=== PATIENT | female | born 1950 | race Two or more races ===

== ENCOUNTER 2019-12-26 09:47 | Emergency (ER) | payer BC, MEDICAID ==
[~2019-12-26] VITALS: Ht 160 cm; Wt 64.0 kg
[2019-12-26] MEDS ORDERED: HYDROCODONE/ACETAMINOPHEN 5/325MG TABLET PO ONE ×2 (12:00→14:45)
[2019-12-26] MEDS ORDERED: KETOROLAC 60MG/2ML VIAL IM ONE (12:00)
[2019-12-26] MEDS ORDERED: AMLODIPINE 5MG TABLET PO ONE (15:15)
[2019-12-26 15:35] VITALS: BP 209/98
== END 2019-12-26 15:36 | disposition home or self-care (01) ==
LOC: ER 09:47
DX: M54.31 Sciatica, right side (principal); I10 Essential (primary) hypertension; E78.00 Pure hypercholesterolemia, unspecified
CPT/HCPCS: 73502; 73552; 93005; 96372; 99285; J1885

== ENCOUNTER 2021-07-11 15:27 | Emergency (ER) | payer MEDICARE, MEDICAID ==
[~2021-07-11] VITALS: Ht 160 cm; Wt 59.0 kg
[2021-07-11 16:57] LABS: BASOPHILS % 1.3 % (0.0-2.0); EOSINOPHILS % 1.3 % (0.0-5.0); HEMATOCRIT. 28.2 % (36.0-48.0); HEMOGLOBIN. 8.8 g/dL (12.0-16.0); LYMPHOCYTES % 26.6 % (20.0-50.0); MEAN CORPUSCULAR HEMOGLOBIN 21.3 pg (28.0-32.0); MEAN CORPUSCULAR VOLUME 68.7 fL (81.0-99.0); MEAN PLATELET VOLUME 8.4 fl (7.4-10.4); MONOCYTES % 6.1 % (2.0-8.0); NEUTROPHILS % 64.7 % (40.0-76.0); PLATELET 260 x1000/uL (130-400); RED BLOOD CELL COUNT 4.11 mill/uL (4.2-5.4); RED CELL DISTRIBUTION WIDTH 22.8 % (11.6-14.6)
[2021-07-11] MEDS ORDERED: HYDROCHLOROTHIAZIDE 25MG TABLET PO ONE (17:00)
[2021-07-11] MEDS ORDERED: LISINOPRIL 40MG TABLET PO ONE (17:00)
[2021-07-11 17:08] LABS: CHLORIDE 106 mEq/L (98-107)
[2021-07-11 17:34] LABS: PLATELET ESTIMATE NORMAL
[2021-07-11] MEDS ORDERED: POTASSIUM CHLORIDE 20MEQ TABLET SR PO NR (17:45)
[2021-07-11] MEDS ORDERED: HYDR25TA MT (18:40)
[2021-07-11 18:49] LABS: CLARITY URINE CLEAR (CLEAR); COLOR URINE DARK YELLOW (YELLOW); KETONES URINE NEGATIVE (NEGATIVE); LEUKOCYTE ESTERASE URINE TRACE (NEGATIVE); NITRITE URINE NEGATIVE (NEGATIVE); OCCULT BLOOD URINE NEGATIVE (NEGATIVE); PROTEIN URINE 2+ (NEGATIVE); SPECIFIC GRAVITY URINE 1.013 (1.005-1.030); UROBILINOGEN URINE 0.2 E.U./dL (0.2-1.0)
[2021-07-11 20:20] VITALS: BP 184/87
== END 2021-07-11 20:20 | disposition home or self-care (01) ==
LOC: ER 15:40
DX: I16.9 Hypertensive crisis, unspecified (principal); F17.200 Nicotine dependence, unspecified, uncomplicated
CPT/HCPCS: 36415; 80053; 81003; 85025; 99283